=== PATIENT | male | born 1945 | race Caucasian/White ===

== ENCOUNTER 2019-08-12 15:10 | Emergency (ER) | payer BC, MEDICARE ==
[~2019-08-12] VITALS: Ht 162.6 cm; Wt 72.7 kg
[2019-08-12] MEDS ORDERED: normal saline 1000ML IV soln IVB ONE (15:40)
[2019-08-12] MEDS ORDERED: ondansetron/PF 4mg/2ml inj IV ONE (16:00)
[2019-08-12 16:10] LABS: CLARITY,URINE CLEAR (Clear); COLOR,URINE YELLOW (Yellow); GLUCOSE, URINE 250 mg/dl (Neg); KETONES,URINE TRACE mg/dl (Neg); LEUKOCYTE ESTERASE ,URINE NEGATIVE (Neg); NITRITES, URINE NEGATIVE (Neg); OCCULT BLOOD,URINE SMALL (Neg); PH,URINE 5.5 (4.8-8.0); PROTEIN,URINE 100 mg/dl (Neg); UROBILINOGEN,URINE 0.2 E.U/dL (0.2-1.0)
[2019-08-12 16:11] LABS: BASOPHILS # (AUTO) 0.1 X10'3 (0-0.2); BASOPHILS % (AUTO) 0.5 % (0-1); EOSINOPHILS # (AUTO) 0.1 X10'3 (0-0.9); EOSINOPHILS % (AUTO) 0.8 % (0-6); HEMATOCRIT 48.6 % (42.0-52.0); HEMOGLOBIN 16.5 g/dl (14.0-17.9); LYMPHOCYTES # (AUTO) 0.3 X10'3 (1.1-4.8); LYMPHOCYTES % (AUTO) 2.5 % (21-51); MEAN CORPUSCULAR HEMOGLOBIN 28.7 PG (27.0-31.0); MEAN CORPUSCULAR HGB CONC 33.9 g/dL (33.0-36.5); MEAN CORPUSCULAR VOLUME 84.8 FL (78-98); MEAN PLATELET VOLUME 8.4 FL (7.4-10.4); MONOCYTES # (AUTO) 1.4 X10'3 (0-0.9); MONOCYTES % (AUTO) 10.5 % (2-12); NEUTROPHILS % (AUTO) 85.7 % (42-75); PLATELET COUNT 154 X10'3 (140-440); RED BLOOD COUNT 5.73 X10'6 (4.70-6.10); WHITE BLOOD COUNT 12.9 X10'3 (4.5-11.0)
[2019-08-12 16:24] LABS: ALANINE AMINOTRANSFERASE 37 U/L (12-78); ALBUMIN 3.2 G/DL (3.4-5.0); ALBUMIN/GLOBULIN RATIO 0.7 (1.1-1.5); ALKALINE PHOSPHATASE 80 IU/L (46-116); ANION GAP 8 (8-16); ASPARTATE AMINO TRANSFERASE 23 U/L (10-37); BILIRUBIN,TOTAL 0.6 MG/DL (0.1-1.0); BLOOD UREA NITROGEN 25 MG/DL (7-18); BUN/CREATININE RATIO 20.7 (5.4-32.0); CALCIUM 9.1 MG/DL (8.5-10.1); CHLORIDE 101 MMOL/L (99-107); CREATININE 1.21 MG/DL (0.60-1.10); GLUCOSE 206 MG/DL (70-104); SODIUM 137 MMOL/L (135-145); TOTAL CARBON DIOXIDE 28.1 MMOL/L (24-32); TOTAL PROTEIN 7.5 G/DL (6.4-8.2); eGFR 59 ML/MIN
[2019-08-12 16:30] LABS: UA COLLECTION TYPE CLN CATCH MIDSTREAM
[2019-08-12 16:31] LABS: BACTERIA,URINE FEW /HPF (Neg); MUCUS STRANDS MODERATE /LPF (Neg); RBC,URINE 0-2 /HPF (0-2); SQUAMOUS EPITHELIAL CELL,UR FEW /LPF (FEW); WBC,URINE 0-4 /HPF (0-4)
[2019-08-12] MEDS ORDERED: iohexol 300mg/ml 100ml inj. ONE (16:33)
[2019-08-12] MEDS ORDERED: morphine 4 MG/ML inj SYRINge IV ONE ×2 (16:35→18:45)
[2019-08-12] MEDS ORDERED: normal saline 1000ml 1,000 ML IV ONE (18:00)
[2019-08-12] MEDS ORDERED: ONDA4TAB6 PO (19:34)
[2019-08-12] MEDS ORDERED: HYDR-4383 PO (19:34)
[2019-08-12] MEDS ORDERED: POLY17PO10 PO (19:34)
[2019-08-12 20:06] VITALS: BP 135/66
== END 2019-08-12 20:07 | disposition home or self-care (01) ==
LOC: ER 15:11
DX: R14.0 Abdominal distension (gaseous) (principal); R19.07 Generalized intra-abdominal and pelvic swelling, mass and lump; R11.0 Nausea; M54.5 Low back pain; R51 Headache; E11.9 Type 2 diabetes mellitus without complications; Z98.890 Other specified postprocedural states; Z88.1 Allergy status to other antibiotic agents; Z79.899 Other long term (current) drug therapy
CPT/HCPCS: 36415; 74177; 80053; 81001; 85025; 85610; 93005; 96374; 96375; 96376; 99284; J2270; J2405; J7030; Q9967